=== PATIENT | female | born 1960 | race Caucasian/White ===

== ENCOUNTER 2017-01-18 17:10 | Emergency (ER) | payer OTHER, BC | END 2017-01-18 17:53 | disposition home or self-care (01) | LOC: ER 17:10 | DX: S80.12XA Contusion of left lower leg, initial encounter (principal); I10 Essential (primary) hypertension; W01.0XXA Fall on same level from slipping, tripping and stumbling without subsequent striking against object, initial encounter | CPT/HCPCS: 73590-LT; 93971; 99284 ==